=== PATIENT | female | born 1995 | race Caucasian/White ===

== ENCOUNTER 2018-09-25 06:00 | Inpatient (IN) ==
[2018-09-25] MEDS ORDERED: Naloxone 0.4 MG/ML INJ IVP PRN (06:41)
[2018-09-25] MEDS ORDERED: Metoclopramide 10 MG/2 ML VIAL IVP PRN (06:41)
[2018-09-25] MEDS ORDERED: Famotidine 20 MG/2 ML VIAL IVP PRN (06:41)
[2018-09-25] MEDS ORDERED: *HR* Nalbuphine 10 MG/ML AMPUL IVP PRN (06:41)
[2018-09-25] MEDS ORDERED: Ondansetron 4 MG/2 ML VIAL IVP PRN (06:41)
[2018-09-25] MEDS ORDERED: Ringers Solution, Lactated 1,000 ML IVC SCH (06:45)
[2018-09-25] MEDS ORDERED: Oxytocin 20 units/ LR 1000 mL 20 UNIT/1,000 ML BAG IVC SCH ×2 (06:45→22:28)
[2018-09-25 06:58] LABS: Basophils # 0.1 K/mcL (0.0-0.2); Basophils % 0.6 %; Eosinophils # 0.1 K/mcL (0.0-0.6); Eosinophils % 0.9 %; Hematocrit 37.4 % (35.3-44.9); Hemoglobin 13.1 g/dL (11.5-15.4); Immature Granulocytes % 1.4 % (0-4); Lymphocytes # 1.5 K/mcL (0.6-4.6); Lymphocytes % 12.9 %; Mean Corpuscular Hemoglobin 30.3 pg (28.0-33.3); Mean Corpuscular Volume 86.4 fL (83.0-100.0); Mean Platelet Volume 9.8 fL (9.4-12.4); Monocytes # 0.9 K/mcL (0.0-1.3); Monocytes % 7.2 %; Platelet Count 263 K/mcL (140-400); Red Blood Count 4.33 M/mcL (3.82-4.97); Red Cell Distribution Width 12.5 % (11.5-14.5)
[2018-09-25 07:03] LABS: Amphetamine Screen,Urine Negative ng/mL (Cutoff=1000); Barbiturate Screen,Urine Negative ng/mL (Cutoff=200)
[2018-09-25 07:04] LABS: Benzodiazepines Screen,Urine Negative ng/mL (Cutoff=300); Cannabinoid Screen,Urine Negative ng/mL (Cutoff = 50); Cocaine Screen,Urine Negative ng/mL (Cutoff= 300); Opiate Screen,Urine Negative ng/mL (Cutoff=300); Phencyclidine Screen,Urine Negative ng/mL (Cutoff=25)
--- NOTE | 2018-09-25 08:44 | OB/GYN History & Physical ---
Date of Encounter: 09/25/18 Time of Encounter: 08:40 Assessment and Plan (1) 39 weeks gestation of Current visit: Yes Status: Acute (2) Elective induction of labor planned Current visit: Yes Status: Acute Pitocin induction with pit started at milliunit/min and increase by 2 every 30 minutes until adequate labor achieved. GBS negative Planned epidural for pain control History of Present Illness Chief complaint: Induction of labor-planned HPI: Ms. Osborn is a 22 year old female G 1 at 39 5/7 weeks presents to labor and delivery for planned induction of labor. She denies any contractions, vaginal bleeding, or leaking fluid. She reports good movements. Her has been uncomplicated. Past Med Surg Social Fam HX - Past Medical History Source: patient Medical history: no medical history - Past Surgical History Surgical History: appendectomy Additional surgical history: appendix removed in 10/2016 - Social History Smoking Status: Never smoker Alcohol use: none Drug use: none Current living situation: Home - Independent - Family History Mother Living Status: Still Living Hx Family Cardiac Disorders: No Hx Family Respiratory Disorders: No Hx Family Cancer: No Hx Family GI Disorders: Yes (Diverticulitis) Hx Family Genitourinary Disorders: No Hx Family Endocrine Disorder: No Hx Family Musculoskeletal Disorders: No Hx Family Neuromuscular Disorders: No Hx Family Neurologic Disorders: No Hx Family HEENT Disorders: No Hx Family Autoimmune Disorders: No Hx Family Reproductive Disorders: No Hx Family Psychosocial Disorders: No Hx Family Medical Disorders: No Obstetrical History - Pregnancies : 1 - History/Complications History/Complications: none GBS negative Rubella immune AB positive Medications and Allergies Famotidine/Ca Carb/Mag Hydrox [Pepcid Complete Tablet Chew] 1 each PO BID PRN 09/25/18 [History] Vit #108/Iron/FA [ One Tablet] 1 each PO DAILY 09/25/18 [History] Allergy/AdvReac Type Severity Reaction Status Date / Time No Known Allergies Allergy Verified 09/25/18 07:56 Review of System OB All systems PM: reviewed and no additional remarkable complaints except as stated - Constitutional Constitutional ROS IM: no chills, no fever(s) - Gastrointestinal Gastrointestinal: no nausea, no vomiting - Genitourinary Genitourinary: no hematuria, no vaginal discharge Exam - Constitutional Constitutional: well developed, well nourished, no acute distress, average body habitus - HEENT HEENT: EOMI - Lungs Respiratory exam: CTAB - Cardiovascular Cardiovascular exam: RRR - Abdomen Abdomen: Present: bowel sounds normal, gravid, non tender ([place] 7.5 lbs, vertex) - Extremities Extremities exam: normal inspection - Cervix Dilation: 4 Effacement: 80 Station: -1 Results Result Diagrams: 09/25/18 06:40 Abnormal lab results WBC 11.7 K/mcL (4.3-11.1) H 09/25/18 06:40 Neutrophils # 9.0 K/mcL (1.6-8.9) H 09/25/18 06:40 All other labs normal. - VTE Reasons for not Prescribing Prophylaxis: Treatment not Indicated - Low risk for VTE
--- NOTE | 2018-09-25 11:02 | Anesthesia Evaluation PreOp ---
Date of Encounter: 09/25/18 Time of Encounter: 11:00 - Past History Planned Operation: LYDNSEY Cardiac History: Denies any Significant Hx Pulmonary History: Former smoker, Smoking Cessation (quit smoking in 01/2018; smoked for ~4 years) COLLECTIONS AGENT History: Denies Any Significant HX Other Medical History: Denies Any Significant HX Anesthesia History: No Prior Anesthetic Complications (never had any procedure requiring NA; denies personal and family h/o GA complications), Past Anesthesia (Lx appy) : Yes Alcohol Use: none Drug use: none Medications and Allergies Famotidine/Ca Carb/Mag Hydrox [Pepcid Complete Tablet Chew] 1 each PO BID PRN 09/25/18 [History] Vit #108/Iron/FA [ One Tablet] 1 each PO DAILY 09/25/18 [History] Allergy/AdvReac Type Severity Reaction Status Date / Time No Known Allergies Allergy Verified 09/25/18 07:56 - Meds/Allergy Pre-op Review Medications Reviewed: Yes Allergies Reviewed: Yes Beta Blockers on Current Med List: No Anesthesia Results - Labs 09/25/18 06:40 Anesthesia Exam 125/83, HR 90, RR 20 Height: 1.63m Weight: 96kg NPO (# of Hours): solids > 8hr Pain Scale: 5 Pain Scale Used: Zuniga-Langston (Faces) - HEENT Pupil (Motor): Pupils equal Mallampati: II Teeth: Normal Oral Opening: Greater than 3 - COLLECTIONS AGENT LOC: Oriented COLLECTIONS AGENT Motor: Normal RUE, Normal LUE, Normal RLE, Normal LLE, Normal Face COLLECTIONS AGENT Sensory: Normal: RUE, LUE, RLE, LLE, Face - Cardiac Rhythm: Regular Murmur: None - Pulmonary Breath Sounds: bilateral Clear Respiratory Effort: Symmetrical Anesthesia Assess/Plan ASA Score: 2 Level of consciousness: Cooperative Anesthetic Plan: Epidural Autologous Blood: No Monitoring Plan: Standard Monitors Recovery Plan: Other
[2018-09-25] MEDS ORDERED: *HR* FentaNYL (PF) 100 MCG/2 ML VIAL EP ONE (11:05)
[2018-09-25] MEDS ORDERED: Bupivacaine-MPF 0.25% 10 ML VIAL EP ONE (11:05)
[2018-09-25] MEDS ORDERED: Epidural Premix (fent/bupiv) 110 ML EP SCH (11:15)
[2018-09-25] MEDS ORDERED: *HR* FentaNYL (PF) 100 MCG/2 ML VIAL ONE (11:23)
[2018-09-25] MEDS ORDERED: Bupivacaine-MPF 0.25% 10 ML VIAL ONE (11:23)
[2018-09-25] MEDS ORDERED: Lidocaine -MPF 1% 5 ML AMPUL ONE (11:23)
[2018-09-25] MEDS ORDERED: Lidocaine -MPF 2% 5 ML VIAL ONE (11:24)
--- NOTE | 2018-09-25 13:06 | OB Labor Progress Note ---
Date of Encounter: 09/25/18 Time of Encounter: 13:03 Labor Progress Note - Subjective Subjective: Patient rates her pain as 1/10. She overall feels very comfortable - Cervix Cervix: 4.5/80/-2 - Heart Tones Heart Tones: category 1, baseline 125 - [place]: q 2 minutes - Interventions Interventions: AROM with clear fluid. Continue EFM and pitocin with anticipation of vaginal delivery
--- NOTE | 2018-09-25 14:30 | Anesthesia Procedures ---
Addendum entered and electronically signed by Rubio Horton CRNA 09/25/18 22:02: Delivery Date: 09/25/18 Delivery Time: 19:26 Original Note: Date of Encounter: 09/25/18 Time of Encounter: 01:35 Procedures: Anesthesia - Epidural/Spinal Patient ID/Chart reviewed: Yes Patient examined: Yes OB Eval: Gestational age: 39 weeks 5 days OB Eval: : 1 OB Eval: Hx Para: 0 OB Eval: Dilated at (cm): 5 OB Eval: Contractions: Non-stressed pattern Consent Obtained: Yes Supplemental Oxygen: None/Room Air Site Prep: Aseptic Technique, Sterile prep and drape, Povidone-Iodine 1% Patient position: upright Local Anesthetic: Lidocaine 1% Amount of Local Anesthetic used: 3 Touhy Needle Gauge: 18 Touhy Needle Depth (cm): 6 Catheter Depth at Skin (cm): 11 Test Dose (1.5% Lido + Epi): Volume given (mls): 5 Test Dose Result: Negative Loading Dose: 0.25% Marcaine (mls): 5 Loading Dose: Fentanyl (mcg): 100 Loading Dose Administered: Thru Catheter Infusion Med: 0.125% Bupivacaine w/ 2 mcg/ml Fentanyl Infusion Rate (mls/hr): 14 (w/ demand bolus of 6mL q30min PRN) Catheter Secured in Place: Tegaderm, Tape Interspace Used: L3-L4 Loss of Resistance (CJ): Yes Blood: No CSF: No Paresthesia: No Procedure: successful on 1st attempt; Pt tolerated procedure well; VSS Vitals + FHT's: please see Adrian HINOJOSA's electronic VS record
--- NOTE | 2018-09-25 19:50 | OB/GYN Procedure Note ---
Delivery - Delivery Date: 09/25/18 Provider: Ruthann Hendrix Intrapartum events: none Delivery induction: AROM, oxytocin Delivery monitor: external FHT, external uterine Anesthesia: epidural Quantitated Blood Loss: 200 - Infant (s) Infant A Delivery Date: 09/25/18 Infant Delivery Time: 19:26 Presentation: vertex Position: SPIKE Route of delivery: Gender: Female Viability: Viable Pounds: 7 Ounces: 13 Weight Gram: 3.535 kg at 1 minute: 7 at 5 mins: 9 Shoulder Dystocia: not encountered Placenta: spontaneous Cord: nuchal cord, 3 umbilical vessels, nuchal cut - Repair Episiotomy: none Laceration Description: Perineal - 2nd Degree - Complications Delivery complications: none Delivery comments: Called to room with patient complete and +2 station. Under maternal effort she delivered a viable female weighing 7 lbs. 13 oz. and Apgars 7 and 9 at one and 5 minutes respectively over second degree perineal laceration. Following delivery of the head there was a tight nuchal cord noted that was double clamped and cut the perineum. The shoulders delivered easily with maternal effort. was placed on mom's abdomen. Placenta delivered spontaneously, complete, and intact with a three-vessel cord. Second-degree perineal laceration was repaired using 3-0 Vicryl in standard fashion. She had periurethral laceration was hemostatic without repair. Mother and infant are recovering in the LDR in stable condition. - Disposition Mom disposition: stable in LDR disposition: stable in LDR
[2018-09-25] MEDS ORDERED: Acetaminophen 325 MG TABLET PO PRN (22:28)
[2018-09-25] MEDS ORDERED: Oxytocin 20 units/ LR 1000 mL 20 UNIT/1,000 ML BAG IVC ONE (22:28)
[2018-09-26] MEDS: Ibuprofen 600 MG TABLET PO PRN ×3 (05:55→18:13)
[2018-09-26 08:09] VITALS: BP 115/75
[2018-09-26] MEDS ORDERED: Prenatal Vit/FA 1 EACH TABLET PO SCH (09:00)
--- NOTE | 2018-09-26 09:50 | Discharge Summary ---
Date of Encounter: 09/26/18 Time of Encounter: 09:48 - Discharge Diagnosis (1) Status post vaginal delivery Priority: Primary Status: Acute Comments: Feeling well Tolerating regular diet Pain well-controlled with by mouth pain meds Ambulating independently Voiding independently Lochia light Passing flatus, no BM yet Vital signs stable Discharge home today (2) Breast feeding status of mother Priority: Secondary Status: Acute Comments: Community resources provided - Discharge Medications Prescriptions: Ibuprofen [Motrin] 600 mg PO Q6HR PRN #30 tablet PRN Reason: Cramping Docusate [Colace] 100 mg PO BID #30 capsule Home Medications: Famotidine/Ca Carb/Mag Hydrox [Pepcid Complete Tablet Chew] 1 each PO BID PRN 09/25/18 [History] Vit #108/Iron/FA [ One Tablet] 1 each PO DAILY 09/25/18 [History] Acetaminophen [Tylenol] 650 mg PO Q6HR PRN tablet 09/26/18 [Rx] Docusate [Colace] 100 mg PO BID #30 capsule 09/26/18 [Rx] Ibuprofen [Motrin] 600 mg PO Q6HR PRN #30 tablet 09/26/18 [Rx] Allergies/Adverse Reactions: Allergy/AdvReac Type Severity Reaction Status Date / Time No Known Allergies Allergy Verified 09/25/18 07:56 Data Procedures and tests throughout hospitalization: Laboratory Tests 09/25/18 09/25/18 06:40 06:48 WBC 11.7 H RBC 4.33 Hgb 13.1 Hct 37.4 MCV 86.4 MCH 30.3 MCHC 35.0 RDW 12.5 Plt Count 263 MPV 9.8 Immature Gran % 1.4 Seg Neutrophils % 77.0 Lymphocytes % 12.9 Monocytes % 7.2 Eosinophils % 0.9 Basophils % 0.6 Neutrophils # 9.0 H Lymphocytes # 1.5 Monocytes # 0.9 Eosinophils # 0.1 Basophils # 0.1 Urine Opiates Screen Negative Ur Barbiturates Screen Negative Ur Phencyclidine Scrn Negative Ur Amphetamines Screen Negative U Benzodiazepines Scrn Negative Urine Cocaine Screen Negative U Marijuana (THC) Screen Negative Ur Drug Screen Interp See Below Date of admission: 09/25/18 06:02 Primary care physician: PCP NONE Consults: 09/25/18 22:28 Consult to High Density Press Operator [CONS] Routine Comment: Vaginal delivery, consult needed Discharging clinician: Yaa Hussein Anticipated date of discharge: 09/26/18 - Patient Status Disposition: Home, Self-Care Condition: Good Functional capacity at discharge: independent ambulation Overall status at discharge: patient is progressing back to baseline - Discharge Instructions Follow Up With: NONE,PCP [Primary Care Provider] - Ruthann Hendrix DO [Partnered Physician] - - Diet and Activity Activity: increase activity as tolerated Diet: regular diet Hospital Course Procedures: Reason for admission: induction of labor, IUP at term Delivery: Episiotomy: none Laceration: 2nd degree Other procedures: none complications: none Discharge diagnosis: IUP at term delivered baby: female Hospital course: Patient presented to labor and delivery for elective induction of labor at 39 weeks 5 days gestation. Her labor progressed normally and she delivered a viable female infant. She has a second-degree laceration with an EBL of 200 mL. She is in stable during the period without complication. She is requesting to go home today. She will be discharged in stable condition Time Attestation: Total time spent providing and/or coordinating discharge services: Time Spent: Less than 30 minutes Exam - Constitutional Vitals: Temp Pulse Resp BP Pulse Ox 97.5 F L 89 14 115/75 97 09/26/18 08:07 09/26/18 08:07 09/26/18 08:07 09/26/18 08:07 09/26/18 08:07 General appearance IM: A&O X 3 - Respiratory Respiratory exam: Present: CTAB - Cardiovascular Cardiovascular exam IM: Present: RRR, +S1, +S2 - GI/Abdominal GI/Abdominal exam IM: normal bowel sounds, no peritoneal signs - Rectal Rectal exam: deferred - Uterine Tone: Firm Uterus Position: 2 Fingers Below Umbilicus, Midline - Extremities Exam Extremities exam IM: Present: normal capillary refill, normal inspection, radial pulses palpable and symmetrical - Neurological Exam Neurological exam: alert, CN II-XII intact, normal gait, oriented X3, reflexes normal, no focal deficits, strengths equal and symetr throughout - Psychiatric Additional comments: Patient denies history of anxiety and depression. Signs and symptoms of depression discussed with patient and partner and they verbalized understanding of when to seek help. - Skin Additional comments: Breasts: Soft, nontender; nipples intact without erythema
== END 2018-09-26 21:30 | disposition home or self-care (01) | DRG 560 ==
LOC: 1NENULAB 06:02 → 1NENUOBS 21:27
PROVIDERS: ADMIT Obstetrics & Gynecology; ATTEND Obstetrics & Gynecology

== ENCOUNTER → 2020-09-11 20:14 | Observation (INO) ==
[2020-09-11 18:50] LABS: Basophils % 0.3 %; Eosinophils # 0.1 K/mcL (0.0-0.6); Eosinophils % 0.8 %; Hematocrit 36.2 % (35.3-44.9); Hemoglobin 12.5 g/dL (11.5-15.4); Immature Granulocytes % 0.7 % (0-4); Lymphocytes # 1.4 K/mcL (0.6-4.6); Mean Corpuscular HGB Conc 34.5 g/dL (31.6-35.5); Mean Corpuscular Hemoglobin 31.5 pg (28.0-33.3); Mean Corpuscular Volume 91.2 fL (83.0-100.0); Mean Platelet Volume 10.7 fL (9.4-12.4); Monocytes # 0.5 K/mcL (0.0-1.3); Monocytes % 5.5 %; Neutrophils # 7.3 K/mcL (1.6-8.9); Platelet Count 262 K/mcL (140-400); Red Blood Count 3.97 M/mcL (3.82-4.97); Red Cell Distribution Width 12.3 % (11.5-14.5); Segmented Neutrophils % 77.7 %; White Blood Count 9.5 K/mcL (4.3-11.1)
[2020-09-11 18:59] LABS: Protein/Creatinine Ratio,Urine 0.13 mg/mg (0.00-0.20)
[2020-09-11 19:09] LABS: Alanine Aminotransferase 8 Units/L (7-52); Aspartate Amino Transferase 14 Units/L (13-39); BUN/Creatinine Ratio 14 (6-26); Blood Urea Nitrogen 6 mg/dL (6-20); Lactate Dehydrogenase 120 Units/L (140-271); Uric Acid 3.5 mg/dL (2.3-7.6); eGFR For African Americans > 60 (> 60); eGFR For Non-African Americans > 60 (> 60)
[~2020-09-11 20:14] MED LIST: Acetaminophen 325 MG TABLET PO ONE
== END | disposition home or self-care (01) ==
LOC: 1NENULAB
PROVIDERS: ADMIT Student in an Organized Health Care Education/Training Program; ATTEND Student in an Organized Health Care Education/Training Program

== ENCOUNTER 2020-09-29 00:08 | Inpatient (IN) ==
[2020-09-29] MEDS ORDERED: Metoclopramide 10 MG/2 ML VIAL IVP PRN (00:14)
[2020-09-29] MEDS ORDERED: Famotidine 20 MG/2 ML VIAL IVP PRN (00:14)
[2020-09-29] MEDS ORDERED: Naloxone 0.4 MG/ML INJ IVP PRN (00:14)
[2020-09-29] MEDS ORDERED: Ringers Solution, Lactated 1,000 ML IVC SCH (00:15)
[2020-09-29] MEDS ORDERED: Ringers Solution, Lactated 1,000 ML ONE (00:18)
[2020-09-29] MEDS ORDERED: Penicillin G Potassium 5,000,000 UNIT in 0.9 % Sodium Chloride Mini Bag 100 ML IVPB ONE (00:39)
[2020-09-29] MEDS ORDERED: *HR* FentaNYL (PF) 100 MCG/2 ML VIAL IVP PRN (00:39)
[2020-09-29 00:41] LABS: Basophils # 0.1 K/mcL (0.0-0.2); Basophils % 0.4 %; Eosinophils # 0.1 K/mcL (0.0-0.6); Eosinophils % 0.6 %; Hematocrit 37.2 % (35.3-44.9); Immature Granulocytes % 0.6 % (0-4); Lymphocytes # 2.3 K/mcL (0.6-4.6); Lymphocytes % 14.7 %; Mean Corpuscular HGB Conc 34.9 g/dL (31.6-35.5); Mean Corpuscular Hemoglobin 30.6 pg (28.0-33.3); Mean Corpuscular Volume 87.5 fL (83.0-100.0); Mean Platelet Volume 10.6 fL (9.4-12.4); Monocytes % 6.2 %; Platelet Count 295 K/mcL (140-400); Red Blood Count 4.25 M/mcL (3.82-4.97); Red Cell Distribution Width 12.2 % (11.5-14.5); Segmented Neutrophils % 77.5 %; White Blood Count 15.5 K/mcL (4.3-11.1)
[2020-09-29 00:51] LABS: Amphetamine Screen,Urine Negative ng/mL (Cutoff=1000); Barbiturate Screen,Urine Negative ng/mL (Cutoff=200); Benzodiazepines Screen,Urine Negative ng/mL (Cutoff=200); Cannabinoid Screen,Urine Negative ng/mL (Cutoff = 50); Cocaine Screen,Urine Negative ng/mL (Cutoff= 300); Opiate Screen,Urine Negative ng/mL (Cutoff=300); Phencyclidine Screen,Urine Negative ng/mL (Cutoff=25)
[2020-09-29] MEDS ORDERED: Ropivacaine/PF 0.2% 20 ML VIAL EP ONE (00:56)
[2020-09-29] MEDS ORDERED: EPHEDrine 50 MG/ML VIAL IVP PRN (00:56)
[2020-09-29] MEDS ORDERED: *HR* FentaNYL (PF) 100 MCG/2 ML VIAL EP ONE (00:56)
[2020-09-29] MEDS ORDERED: *HR* FentaNYL (PF) 100 MCG/2 ML VIAL ONE (00:57)
[2020-09-29] MEDS ORDERED: Epidural Premix (fent/bupiv) 110 ML EP ONE (00:58)
[2020-09-29] MEDS ORDERED: Epidural Premix (fent/bupiv) 110 ML EP SCH (01:00)
[2020-09-29] MEDS ORDERED: EPHEDrine 50 MG/ML VIAL ONE (01:31)
[2020-09-29] MEDS ORDERED: Oxytocin 20 units/ LR 1000 mL 20 UNIT/1,000 ML BAG IVC SCH (03:28)
[2020-09-29] MEDS ORDERED: Oxytocin 20 units/ LR 1000 mL 20 UNIT/1,000 ML BAG IVC ONE (03:28)
[2020-09-29] MEDS ORDERED: Measles/Mumps/Rubella Vacc 0.5 ML VIAL SQ PRN (03:28)
[2020-09-29] MEDS ORDERED: Acetaminophen 325 MG TABLET PO PRN (03:28)
[2020-09-29] MEDS ORDERED: Rho Immune Globulin 1,500 UNIT SYRINGE IM PRN (03:28)
[2020-09-29] MEDS ORDERED: Penicillin G Potassium 2,500,000 UNIT/105 ML MLS IVPB SCH (04:00)
[2020-09-29] MEDS: Prenatal Vit/FA 1 EACH TABLET PO SCH (08:10)
[2020-09-29 11:47] LABS: Basophils % 0.1 %; Eosinophils % 0.1 %; Hematocrit 35.1 % (35.3-44.9); Hemoglobin 12.2 g/dL (11.5-15.4); Immature Granulocytes % 0.5 % (0-4); Lymphocytes # 1.1 K/mcL (0.6-4.6); Lymphocytes % 6.7 %; Mean Corpuscular HGB Conc 34.8 g/dL (31.6-35.5); Mean Corpuscular Volume 89.3 fL (83.0-100.0); Mean Platelet Volume 10.7 fL (9.4-12.4); Monocytes # 1.1 K/mcL (0.0-1.3); Monocytes % 6.5 %; Neutrophils # 13.9 K/mcL (1.6-8.9); Platelet Count 251 K/mcL (140-400); Red Blood Count 3.93 M/mcL (3.82-4.97); Red Cell Distribution Width 12.2 % (11.5-14.5); Segmented Neutrophils % 86.1 %; White Blood Count 16.2 K/mcL (4.3-11.1)
[2020-09-29] MEDS ORDERED: Ibuprofen 600 MG TABLET PO PRN (21:53)
[2020-09-30 07:50] VITALS: BP 110/75
[2020-09-30] MEDS: Prenatal Vit/FA 1 EACH TABLET PO SCH (08:11)
== END 2020-09-30 10:45 | disposition home or self-care (01) | DRG 560 ==
LOC: 1NENULAB → 1NENUOBS 04:42
PROVIDERS: ADMIT Obstetrics & Gynecology; ATTEND Obstetrics & Gynecology